=== PATIENT | male | born 2000 | race Caucasian/White ===

== ENCOUNTER 2022-03-18 20:52 | Inpatient (IN) | payer OTHER ==
[~2022-03-18] VITALS: Ht 188 cm; Wt 114.7 kg
[2022-03-18 22:13] LABS: HEMATOCRIT 45.2 % (42.0-52.0); HEMOGLOBIN 15.6 g/dl (13.5-17.5); MEAN CORPUSCULAR HEMOGLOBIN 29.2 pg (27.0-33.0); MEAN CORPUSCULAR HGB CONC 34.5 g/dl (32.0-36.5); MEAN CORPUSCULAR VOLUME 84.6 fl (80.0-96.0); PLATELET COUNT, AUTOMATED 303 10^3/uL (150-450); RED BLOOD COUNT 5.34 10^6/uL (4.30-6.10); WHITE BLOOD COUNT 9.7 10^3/uL (4.0-10.0)
[2022-03-18 22:19] LABS: AMPHETAMINES LEVEL URINE NEGATIVE (NEGATIVE); BARBITURATES URINE NEGATIVE (NEGATIVE); BENZODIAZEPINES URINE NEGATIVE (NEGATIVE); CANNABINOIDS URINE NEGATIVE (NEGATIVE); COCAINE METABOLITE URINE NEGATIVE (NEGATIVE); METHADONE URINE NEGATIVE (NEGATIVE); OPIATES URINE NEGATIVE (NEGATIVE); PHENCYCLIDINE URINE NEGATIVE (NEGATIVE)
[2022-03-18 22:30] LABS: ETHYL ALCOHOL (ETHANOL) 0.005 % (0.000-0.010)
[2022-03-18 22:31] LABS: ACETAMINOPHEN LEVEL < 2.0 UG/ML (10.0-20.0)
[2022-03-18 22:32] LABS: ALBUMIN 4.8 G/DL (3.2-5.2); ALKALINE PHOSPHATASE 80 U/L (46-116); ALT/SGPT 20 U/L (7.0-40); AST/SGOT 23 U/L (<34); BILIRUBIN,DIRECT 0.6 MG/DL (<0.4); BILIRUBIN,TOTAL 1.8 MG/DL (0.3-1.2); BLOOD UREA NITROGEN 14 MG/DL (9-23); CALCIUM LEVEL 9.7 MG/DL (8.5-10.1); CARBON DIOXIDE LEVEL 31 MMOL/L (20-31); CHLORIDE LEVEL 102 MMOL/L (98-107); CREATININE FOR GFR 1.01 MG/DL (0.70-1.30); GLUCOSE, FASTING 87 MG/DL (60-100); POTASSIUM SERUM 3.7 MMOL/L (3.5-5.1); SALICYLATE LEVEL < 3.0 MG/DL (<30); SODIUM LEVEL 139 MMOL/L (136-145); TOTAL PROTEIN 7.6 G/DL (5.7-8.2)
[2022-03-18 22:34] LABS: THYROID STIMULATING HORMONE 3.488 uIU/ML (0.48-4.17)
[2022-03-19] MEDS ORDERED: HOME MED LIST COMPLETE! XX SCH (00:25)
[2022-03-19] MEDS ORDERED: MOM 30ML SUSPENSION UDC PO PRN (14:35)
[2022-03-19] MEDS ORDERED: MAALOX 30 ML SUSP *UDC PO PRN (14:35)
[2022-03-19 15:24] VITALS: BP 132/73
[2022-03-20 06:28] VITALS: BP 142/80
[2022-03-20 09:30] VITALS: BP 142/80
[2022-03-20] MEDS ORDERED: hydrOXYzine 50 MG TAB PO PRN (10:10)
[2022-03-20 19:19] VITALS: BP 135/71
[2022-03-20] MEDS ORDERED: SERTRALINE HCL 25 MG TABLET PO ONE (21:00)
[2022-03-21 06:55] VITALS: BP 145/74
[2022-03-21 18:09] VITALS: BP 124/78
[2022-03-21] MEDS: traZODone 50 MG TAB PO PRN (20:01)
[2022-03-21] MEDS: SERTRALINE HCL 50 MG TAB PO SCH (20:01)
[2022-03-22 06:25] VITALS: BP 152/80
[2022-03-22 18:36] VITALS: BP 137/65
[2022-03-22] MEDS: SERTRALINE HCL 50 MG TAB PO SCH (20:25)
[2022-03-22] MEDS: traZODone 50 MG TAB PO PRN (20:25)
[2022-03-23 06:55] VITALS: BP 120/71
[2022-03-23 18:22] VITALS: BP 144/84
[2022-03-23] MEDS: traZODone 50 MG TAB PO PRN (20:13)
[2022-03-23] MEDS: SERTRALINE HCL 50 MG TAB PO SCH (20:13)
[2022-03-24 06:00] VITALS: BP 117/58
[2022-03-24 16:46] VITALS: BP 154/86
[2022-03-24] MEDS: ACETAMINOPHEN TAB 650MG DOSE (2X325MG) PO PRN (17:07)
[2022-03-24] MEDS: traZODone 50 MG TAB PO PRN (20:39)
[2022-03-24] MEDS: SERTRALINE HCL 50 MG TAB PO SCH (20:40)
[2022-03-25 06:24] VITALS: BP 112/55
[2022-03-25] MEDS ORDERED: HYDR50TA70 PO (08:44)
[2022-03-25] MEDS ORDERED: SERT50TA29 PO (08:44)
[2022-03-25] MEDS ORDERED: TRAZ-252 PO (08:44)
[2022-03-25 17:21] VITALS: BP 141/65
[2022-03-25] MEDS: SERTRALINE HCL 50 MG TAB PO SCH (20:22)
[2022-03-25] MEDS: ACETAMINOPHEN TAB 650MG DOSE (2X325MG) PO PRN (20:22)
[2022-03-25] MEDS: traZODone 50 MG TAB PO PRN (20:22)
[2022-03-26 06:52] VITALS: BP 134/65
== END 2022-03-26 12:09 | disposition home or self-care (01) | DRG 885 ==
LOC: M ED 20:52 → M ED INP 03-19 14:34 → M PSY 03-19 15:21
PROVIDERS: ADMIT Psychiatry & Neurology Psychiatry; ATTEND Psychiatry & Neurology Psychiatry
DX: F32.1 Major depressive disorder, single episode, moderate (principal); R45.851 Suicidal ideations